=== PATIENT | male | born 1960 | race American Indian/Alaskan Native ===

== ENCOUNTER 2020-05-08 23:06 | Emergency (ER) | payer OTHER ==
--- NOTE | 2020-05-09 03:45 | Cat Scan Report ---
Exam has been dictated earlier this morning. Signer Name: Bashir Valles MD Signed: 05/09/2020 3:41 AM Workstation Name: [id number]
--- NOTE | 2020-05-09 04:11 | Emergency Department Report ---
ED Psych HPI - General Stated Complaint: DRUG USE Time Seen by Provider: 05/09/20 02:45 Source: patient, family - History of Present Illness Initial Comments: 60-year-old male reports no past medical history, presents to ED for possible drug use. Triage note states that patient has been smoking dust and marijuana for the last couple of days. Spoke with patient's son, Lennox Rao ([phone]), over the phone. He states he believes his father may have used some sort of drug on yesterday, although he is not sure. Thinks it may have been PCP. States he has been acting like he is on PCP. States patient was walking into the street rolling around on the ground outside of the house, yelling. Son reports patient has not been violent or combative. He brought patient to the ER along with patient's girlfriend. Patient states "I just went off. " He denies any psychiatric history. Patient himself denies any alcohol or drug use. Patient denies any SI, HI, or hallucinations. Please see additional downtime chart as patient was seen during downtime procedures. MD Complaint: altered mental status, other -: days(s) (1) Associated Psychiatric Symptoms: other (Bizarre behavior) History of same: No Quality: constant Improves With: none Worsens With: none Context: other (Possible recent drug use) Associated Symptoms: denies other symptoms. denies: headache, shortness of breath, nausea, vomiting Treatments Prior to Arrival: none - Related Data Previous Rx's Medication Instructions Recorded Last Taken Type Oxycodone HCl/Acetaminophen 1 each PO Q6HR PRN #90 tablet 08/30/13 05/08/20 07:00 Rx [Percocet 10-325 mg] Sulfamethoxazole/Trimethoprim 1 each PO BID 3 Days #6 tablet 05/09/20 Unknown Rx [Bactrim DS TAB] Allergies Allergy/AdvReac Type Severity Reaction Status Date / Time No Known Allergies Allergy Unverified 08/22/13 15:17 ED Review of Systems ROS: Stated complaint: DRUG USE Other details as noted in HPI Comment: All other systems reviewed and negative Psychiatric: denies: auditory hallucinations, visual hallucinations, homicidal thoughts, suicidal thoughts ED Past Medical Hx - Past Medical History Hx Hypertension: Yes - Surgical History Hx Appendectomy: Yes (1981) - Social History Smoking Status: Never Smoker - Medications Home Medications: Home Medications Medication Instructions Recorded Confirmed Last Taken Type Oxycodone HCl/Acetaminophen 1 each PO Q6HR PRN #90 tablet 08/30/13 05/09/20 05/08/20 07:00 Rx [Percocet 10-325 mg] Sulfamethoxazole/Trimethoprim 1 each PO BID 3 Days #6 tablet 05/09/20 Unknown Rx [Bactrim DS TAB] ED Physical Exam - General General appearance: alert, in no apparent distress, appears intoxicated - Head Head exam: Present: atraumatic, normocephalic - Eye Eye exam: Present: normal appearance, EOMI - ENT ENT exam: Present: mucous membranes moist - Neck Neck exam: Present: normal inspection - Respiratory Respiratory exam: Absent: respiratory distress - Cardiovascular Cardiovascular Exam: Present: normal rhythm, tachycardia - GI/Abdominal GI/Abdominal exam: Present: soft. Absent: distended, tenderness - Extremities Exam Extremities exam: Present: normal inspection - Neurological Exam Neurological exam: Present: alert, oriented X3. Absent: CN II-XII intact, motor sensory deficit - Psychiatric Psychiatric exam: Present: normal affect, normal mood - Skin Skin exam: Present: warm, dry, intact, normal color ED Course Vital Signs 05/09/20 05/09/20 04:11 09:16 Temperature 98.4 F 98.6 F Pulse Rate 79 64 Respiratory 18 16 Rate Blood Pressure 106/60 132/78 [Left] O2 Sat by Pulse 100 100 Oximetry ED Medical Decision Making - Radiology Data Radiology results: report reviewed, image reviewed - Medical Decision Making 60-year-old male presents to ED with bizarre behavior secondary to possible drug use. Drug screen is positive for marijuana and PCP. Patient has been calm, noncombative here in the ED. Head CT was obtained secondary to son reporting patient may have possibly fallen at home. CT head is normal. Remainder of labs are normal, except for evidence of some pyuria on the UA. Will obtain mental health assessment on patient. I do not feel that he needs to be a 1013 at this time. Will dispo per psych. Critical care attestation.: If time is entered above; I have spent that time in minutes in the direct care of this critically ill patient, excluding procedure time. ED Disposition Clinical Impression: PCP (phencyclidine) abuse, Marijuana abuse, UTI (urinary tract infection) Disposition: DC-01 TO HOME OR SELFCARE Is pt being admited?: No Condition: Stable Instructions: Urinary Tract Infection, Adult, [id number], Hallucinogen Use Disorder Additional Instructions: Professional and Agency Contacts To help Resolve Crises(01/09) [place] Crisis Line: Suicide Prevention Line: Crisis Text Line: Text START to 651438 Emergency: 911 [facility] - [address] [place] [address] Thursday thru Thursday - 8am - 5pm In case of an emergency, please contact the following numbers: [place] Crisis and Access Line: Number: Crisis Text Line: (Text START) Number: 063471 Suicide Prevention Line: Number: Emergency Number: 911 SUBSTANCE ABUSE PROGRAMS: [facility] [place]: Location: [place], [place] [employer] Address: [address] [place] [address] [facility] Recovery: Address: [address] [place] [address] [facility]: Address: [address] [place] [address] [facility] Community: Address: [address] [place] [address] [facility] Address: [address] [place] [id number]. Please contact above numbers to attempt placement into free based program. Medicaid Programs: [facility]: Address: [address] [place] [address] [facility]: Address: [address] [place] [address] Prescriptions: Sulfamethoxazole/Trimethoprim [Bactrim DS TAB] 1 each PO BID 3 Days #6 tablet Referrals: [facility] [Other] - 3-5 Days
[2020-05-09 04:38] LABS: Bilirubin,Urine NEG (Negative); Blood,Urine SM (Negative); Color,Urine Yellow (Yellow); Mucus,Urine FEW /HPF; Urobilinogen,Urine < 2.0 mg/dL (<2.0)
[2020-05-09 04:44] LABS: Amphetamine Screen,Urine PRESUMPTIVE NEGATIVE; Benzodiazepines Screen,Urine PRESUMPTIVE NEGATIVE; Cannabinoid Screen,Urine PRESUMPTIVE POSITIVE; Cocaine Screen,Urine PRESUMPTIVE NEGATIVE; Methadone Screen,Urine PRESUMPTIVE NEGATIVE; Opiate Screen,Urine PRESUMPTIVE NEGATIVE
[2020-05-09 09:19] VITALS: BP 132/78
--- NOTE | 2020-05-09 10:32 | Consultation ---
History of Present Illness - Reason for Consult Consult date: 05/09/20 Reason for consult: anxiety - History of Present Psychiatric Illness Per ED Note: 60-year-old male reports no past medical history, presents to ED for possible drug use. Triage note states that patient has been smoking dust and marijuana for the last couple of days. Spoke with patient's son, Lennox Rao ([phone]), over the phone. He states he believes his father may have used some sort of drug on yesterday, although he is not sure. Thinks it may have been PCP. States he has been acting like he is on PCP. States patient was walking into the street rolling around on the ground outside of the house, yelling. Son reports patient has not been violent or combative. He brought patient to the ER along with patient's girlfriend. Patient states "I just went off. " He denies any psychiatric history. Patient himself denies any alcohol or drug use. Patient denies any SI, HI, or hallucinations. Tenzin Hernandes is a 60y/o male patient who was seen today. He is a/o x 3. He is calm and cooperative. The patient says he was smoking marijuana and it "made him act very weird." He says "I'm good now. I don't have any psychiatric problems. I can call my right now." He says "I been in the and I do have PTSD." The patient denies any other illicit drug use and alcohol use. He also denies SI/HI. The patient says "never. I am not a violent person and would never hurt myself or no one." The patient also denies ever having an attempt of suicide. The patient denies hallucinations of any kind. PAST PSYCHIATRIC HISTORY Diagnoses: PTSD Suicide attempts or Self-harm behavior: denies Prior psychiatric hospitalizations: Denies Substance Abuse history: THC Previous psychiatric medications tried: Denies Outpatient treatment: Denies PAST MEDICAL HISTORY: None reported Family Psychiatric History: None reported or documented SOCIAL HISTORY Marital Status: Living Arrangements: with spouse Employment Status: Employed Access to guns/weapons: Denies Education: High school History of Abuse: Denies Legal History: Denies EVIEW OF SYSTEMS Constitutional: Negative for weight loss ENT: Negative for stridor Respiratory: Negative for cough or hemoptysis All other systems reviewed and are negative MENTAL STATUS EXAMINATION General Appearance and Behavior: Age appropriate, wearing appropriate clothes, good eye contact, calm, cooperative Mood: "I'm fine" Affect and affective range: congruent with stated mood Thought Process: goal directed Thought Content: Denies Speech: Normal volume, Regular rate and rhythm Suicidal Ideation: Denies Homicidal Ideation: Denies Hallucinations: Denies Delusions: None elicited Impulse Control: normal Insight and Judgment: Limited Memory/Cognition: Limited Attention: Normal Orientation: Alert, oriented Assessment (1) Substance Induced Mood Disorder Plan No medications prescribed Sitter per primary Medical: per primary Disposition: Do not recommend acute inpatient psychiatric treatment The patient to abstain from all illicit drug use Will sign off Case staffed with Dr. Turcios Medications and Allergies Allergies Allergy/AdvReac Type Severity Reaction Status Date / Time No Known Allergies Allergy Unverified 08/22/13 15:17 Home Medications Medication Instructions Recorded Confirmed Last Taken Type Oxycodone HCl/Acetaminophen 1 each PO Q6HR PRN #90 tablet 08/30/13 05/09/20 05/08/20 07:00 Rx [Percocet 10-325 mg] Sulfamethoxazole/Trimethoprim 1 each PO BID 3 Days #6 tablet 05/09/20 Unknown Rx [Bactrim DS TAB] Mental Status Exam - Vital signs Last Vital Signs Temp 98.6 F 05/09/20 09:16 Pulse 64 05/09/20 09:16 Resp 16 05/09/20 09:16 BP 132/78 05/09/20 09:16 Pulse Ox 100 05/09/20 09:16 Results Abnormal lab results 05/09/20 Range/Units Unknown Urine WBC (Auto) 15.0 H (0.0-6.0) /HPF All other labs normal.
== END 2020-05-09 12:02 | disposition home or self-care (01) ==
LOC: ED 23:06
DX: F16.10 Hallucinogen abuse, uncomplicated (principal); F12.10 Cannabis abuse, uncomplicated; N39.0 Urinary tract infection, site not specified; I10 Essential (primary) hypertension; Z90.49 Acquired absence of other specified parts of digestive tract; Z79.899 Other long term (current) drug therapy
CPT/HCPCS: 70450; 80307; 81001; 87086

== ENCOUNTER 2020-07-25 22:17 | Emergency (ER) | payer OTHER ==
[2020-07-25] MEDS ORDERED: ASPIRIN 325 MG TAB PO ONE (22:34)
[2020-07-25 23:17] LABS: Hematocrit 38.7 % (35.5-45.6); Hemoglobin 13.2 gm/dl (11.8-15.2); Mean Corpuscular HGB Conc 34 % (32-34); Mean Corpuscular Volume 80 fl (84-94); Platelet Count 325 K/mm3 (140-440); Red Blood Count 4.87 M/mm3 (3.65-5.03); Red Cell Distribution Width 14.7 % (13.2-15.2)
[2020-07-25 23:40] LABS: Alanine Aminotransferase 28 units/L (7-56); Albumin 4.4 g/dL (3.9-5); BUN/Creatinine Ratio 11; Blood Urea Nitrogen 11 mg/dL (9-20); Hemolysis Index 8
--- NOTE | 2020-07-25 23:50 | XRay Report ---
CHEST 2 VIEWS, 07/25/2020 10:45 PM INDICATION: Chest pain COMPARISON: None FINDINGS: Support devices: None. Heart: The cardiac silhouette is normal in size. Lungs/pleura: The lungs are clear of focal airspace disease or significant pleural effusion. Additional findings: No significant acute abnormality. IMPRESSION: 1. No evidence of acute cardiopulmonary process. Signer Name: Carmela Martinez MD Signed: 07/25/2020 11:45 PM Workstation Name: [id number]
[2020-07-26 01:45] LABS: RBC Morphology Normal; Total Cells Counted 100
--- NOTE | 2020-07-27 19:31 | Electrocardiograph Report ---
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
== END 2020-07-25 22:38 | disposition left against medical advice (07) ==
LOC: ED 22:17
DX: R07.9 Chest pain, unspecified (principal); Z53.21 Procedure and treatment not carried out due to patient leaving prior to being seen by health care provider
CPT/HCPCS: 36415; 71046; 80053; 84484; 85007; 85025; 93005

== ENCOUNTER 2020-08-17 08:03 | Emergency (ER) | payer OTHER ==
[2020-08-17] MEDS ORDERED: DEXTROSE 50% IN WATER (25GM) 50 ML SYRINGE IV ONE (08:14)
--- NOTE | 2020-08-17 08:39 | Emergency Department Report ---
ED CPR HPI - General Chief Complaint: Cardiac Arrest/CPR Stated Complaint: C ARREST Time Seen by Provider: 08/17/20 08:24 Source: EMS Mode of arrival: Stretcher Limitations: Other - History of Present Illness Initial Comments: 60-year-old male, history of hypertension, recent back surgery, presents to ED in cardiac arrest. According to EMS, last known well time was around 3 AM. checked on patient this morning and found him unresponsive. Upon EMS arrival, patient was apneic and pulseless, with a rhythm of asystole. Patient was given a total of epi x3, sodium bicarb x1, D50 x1 for Accu-Chek of 21. Patient arrives to ED in continued arrest. ACLS x20 minutes with EMS. Patient apparently went to the ER last night for chest pain, however did not check-in because the waiting room was too crowded, according to patient's . MD Complaint: found unresponsive Place: home Bystander CPR Performed: No Shock Advised: No Initial Findings in the Field: unresponsive, no respirations, no pulse, other rhythm (Asystole) ROSC in the Field: No Associated Symptoms: chest pain Treatments Prior to Arrival: other airway device (Surinder tube), chest comp ressions, epinephrine mgs # (3), sodium bicarbonate (x1), glucose (D50 x1) - Related Data Previous Rx's Medication Instructions Recorded Last Taken Type Oxycodone HCl/Acetaminophen 1 each PO Q6HR PRN #90 tablet 08/30/13 05/08/20 07:00 Rx [Percocet 10-325 mg] Sulfamethoxazole/Trimethoprim 1 each PO BID 3 Days #6 tablet 05/09/20 Unknown Rx [Bactrim DS TAB] Allergies Allergy/AdvReac Type Severity Reaction Status Date / Time No Known Allergies Allergy Unverified 08/22/13 15:17 ED Review of Systems ROS: Stated complaint: C ARREST Other details as noted in HPI Comment: Unobtainable due to pts medical conditions Cardiovascular: chest pain ED Past Medical Hx - Past Medical History Hx Hypertension: Yes - Surgical History Hx Appendectomy: Yes (1981) Additional Surgical History: back surgery x2, neck surgery, colon surgery 2017? - Social History Smoking Status: Never Smoker Substance Use Type: None - Medications Home Medications: Home Medications Medication Instructions Recorded Confirmed Last Taken Type Oxycodone HCl/Acetaminophen 1 each PO Q6HR PRN #90 tablet 08/30/13 05/09/20 05/08/20 07:00 Rx [Percocet 10-325 mg] Sulfamethoxazole/Trimethoprim 1 each PO BID 3 Days #6 tablet 05/09/20 Unknown Rx [Bactrim DS TAB] ED Physical Exam - General Limitations: Other - Head Head exam: Present: atraumatic, normocephalic - Eye Eye exam: Present: normal appearance Pupils: Present: other (Pupils fixed bilaterally) - ENT ENT exam: Present: other (Surinder tube in place) - Neck Neck exam: Present: normal inspection - Respiratory Respiratory exam: Present: other (No spontaneous breaths) - Cardiovascular Cardiovascular Exam: Present: other (No palpable pulse) - GI/Abdominal GI/Abdominal exam: Present: soft. Absent: distended - Extremities Exam Extremities exam: Present: normal inspection - Neurological Exam Neurological exam: Present: other (GCS 3) - Skin Skin exam: Present: warm, dry, intact, normal color ED Medical Decision Making - Medical Decision Making ACLS was continued according to protocol here in the ED. please see nurses notes for details. Unfortunately, we were unable to achieve ROSC. Time of was called at 08:17 - Differential Diagnosis STEMI, aortic dissection, PE Critical care attestation.: If time is entered above; I have spent that time in minutes in the direct care of this critically ill patient, excluding procedure time. ED Disposition Clinical Impression: Cardiac arrest Disposition: DC-20 Is pt being admited?: No Condition: Stable Referrals: PRIMARY CARE,MD [Primary Care Provider] - 3-5 Days
== END 2020-08-17 09:00 ==
LOC: ED 08:03
DX: I46.9 Cardiac arrest, cause unspecified (principal); I10 Essential (primary) hypertension; Z98.890 Other specified postprocedural states; Z79.899 Other long term (current) drug therapy
CPT/HCPCS: 82962